=== PATIENT | female | born 1950 | race Caucasian/White ===

== ENCOUNTER 2019-05-05 07:43 | Emergency (ER) | payer OTHER, MEDICARE ==
[2019-05-05 07:52] VITALS: BP 190/102
[2019-05-05] MEDS ORDERED: BUFFERED LIDOCAINE 10 ML SYRINGE SUBQ STA ×2 (08:03→08:26)
--- NOTE | 2019-05-05 08:06 | ED Physician Documentation ---
PD HPI ANIMAL BITE - Stated complaint Stated Complaint: DOG BITE - Chief complaint Chief Complaint: Wound - History obtained from History obtained from: Patient, Family - History of Present Illness Location of injury(ies): [place] Details of the event: Dog, Bite, Pet animal, Well appearing, Immunized, Provoked, Animal can be observed Timing - onset: Today Timing - duration: Minutes Timing - details: Abrupt onset, Still present Improved by: Rest, Immobilization Worsened by: Moving, Palpating Associated symptoms: No: Weakness, Numbness, Tingling Contributing factors: No: Immunocompromised Similar symptoms before: Has not had sx before Recently seen: Not recently seen - Additional information Additional information: 69-year-old female is watching her daughter's dogs wall the daughter is at work and 1 of her dogs is gone into heat in the males were fighting and the patient got in between the 2 and was bit in the right leg. She been able to control bleeding with direct pressure comes in now with a large laceration bite to the right lower extremity. Review of Systems Constitutional: denies: Fever, Chills Ears: denies: Ear pain Nose: denies: Congestion Respiratory: denies: Cough GI: denies: Vomiting PD PAST MEDICAL HISTORY - Past Medical History Past Medical History: Yes Endocrine/Autoimmune: Type 2 diabetes - Past Surgical History Past Surgical History: No General: Appendectomy Ortho: Arthroscopic surgery /[place]: Oophrectomy HEENT: Tonsil/Adenoidectomy - Present Medications Home Medications: Ambulatory Orders Medication Instructions Recorded Confirmed Doxycycline Hyclate 100 mg PO BID #10 capsule 05/05/19 High Blood Pressure Pill 05/05/19 - Allergies Allergies/Adverse Reactions: Allergies Allergy/AdvReac Type Severity Reaction Status Date / Time amoxicillin Allergy Rash Verified 05/05/19 07:50 Penicillins Allergy Rash Verified 05/05/19 07:50 - Social History Does the pt smoke?: No Smoking Status: Never smoker Does the pt drink ETOH?: Yes Does the pt have substance abuse?: No - Immunizations Immunizations are current?: No Immunizations: TDAP >10years/unknown PD ED PE NORMAL - Vitals Vital signs reviewed: Yes (hypertensive ) - General General: Alert and oriented X 3, No acute distress, Well developed/nourished - HEENT HEENT: Atraumatic, PERRL, EOMI - Neck Neck: Supple, no meningeal sign - Respiratory Respiratory: No respiratory distress - Derm Derm: Normal color, Warm and dry, No rash - Extremities Extremities: Other (There are bit irwin to the right calf anteriorly to the medial and lateral surface. The medial surface is a large jagged bite. distal n/v is intact. ) - Neuro Neuro: Alert and oriented X 3, nuclear scientist 2-12 intact, No motor deficit, No sensory deficit, Normal speech Eye Opening: Spontaneous Motor: Obeys Commands Verbal: Oriented GCS Score: 15 - Psych Psych: Normal mood, Normal affect Results - Vitals Vitals: Vital Signs - 24 hr 05/05/19 07:48 Temperature 36.6 C Heart Rate 74 Respiratory 18 Rate Blood Pressure 190/102 H O2 Saturation 98 Oxygen O2 Source Room air Procedures - Laceration (location) right calf Length in cm: 9 Wound type: Curved, Irregular, Flap, Contaminated Neurovascular status: Sensory intact, Motor intact, Vascular intact Anesthesia: Lidocaine 1%, With bicarb Wound Preparation: Hibiclens, Irrigated copiously NS, Wound explored, To the base, Multiple flaps aligned Skin layer closure: Nylon, Interrupted, Size #-0 - enter number (4-0), Other (widely placed loosely approximated) Other: Patient tolerated well, No complications, Neurovascular intact, Dressing applied, Tetanus booster given PD MEDICAL DECISION MAKING - ED course Complexity details: re-evaluated patient, considered differential, d/w patient, d/w family ED course: 69-year-old female with a dog bite laceration to the right calf has a large extensive flap these are anesthetized cleansed well and loosely reapplied approximated. She is placed on doxycycline as she is allergic to penicillin. Departure - Departure Disposition: 01 Home, Self Care Clinical Impression: Animal bite with open wound Condition: Stable Instructions: ED Bite Animal General Follow-Up: Your, doctor [Other] Prescriptions: Doxycycline Hyclate 100 mg PO BID #10 capsule Comments: sutures should be removed in 7-10 days
[2019-05-05] MEDS ORDERED: BUFFERED LIDOCAINE 10 ML SYRINGE ONE (08:34)
[2019-05-05] MEDS ORDERED: TETANUS/DIPHTHERIA/PERTUSSIS 0.5 ML SYRINGE IM ONE (08:47)
== END 2019-05-05 09:10 | disposition home or self-care (01) ==
LOC: ED 07:43
DX: S81.851A Open bite, right lower leg, initial encounter (principal); W54.0XXA Bitten by dog, initial encounter; Y93.89 Activity, other specified; Z23 Encounter for immunization; E11.9 Type 2 diabetes mellitus without complications; Z88.0 Allergy status to penicillin
CPT/HCPCS: 12034; 90471; 99283